=== PATIENT | female | born 1940 | race Caucasian/White ===

== ENCOUNTER 2016-10-14 15:20 | Emergency (ER) | payer OTHER ==
[~2016-10-14] VITALS: Ht 165.1 cm; Wt 68.0 kg
[~2016-10-14 15:20] MED LIST: ADVAIR DISKU 11 UNIT INH; ALENDRONATE SOD70 M1 PO; ASPIRIN EC325 M2 PO; ATENOLOL50 M1 PO; BALANCED B COM1 EACH PO; CALCIUM600 M2 PO; CHROMIUM PICO200 MC2 PO; CINNAMON500 M1 PO; CORICIDIN HBP1 EACH PO; FENOFIBRATE134 M1 PO; FISH OIL CONC1000 M1 PO; FLUTICASON0.05 MG/Ac NASB; FOLIC ACID0.8 M2 PO; LECITHIN1200 M2 PO; LOSARTAN-HCTZ 50-12. PO; LOVASTATIN10 MG PO; LOVASTATIN40 M1 PO; MACROBID100 MG PO; MAGNESIUM OXID400 MG PO; MAGNESIUM250 M3 PO; MULTIPLE VITAM1 EAC2 PO; PREDNISONE10 MG PO; RANITIDINE HCL150 MG PO; SYSTANE 0.3-0.415 ML OPH; TRICOR 48MG48 MG PO; VITAMIN C1000 M1 PO; VITAMIN C500 M7 PO; VITAMIN D-32000 UNIT PO; [UNRECOGNIZED DRUG - OTHER] OP; [UNRECOGNIZED DRUG - OTHER] PO; [UNRECOGNIZED DRUG - REMARK] PO
--- NOTE | 2016-10-14 15:34 | ED AMS/SEIZURE/WEAK/DIZZY ---
History of Present Illness General Chief Complaint: General Adult Stated Complaint: BIBA FOR LOW BP Source: patient, family, old records, EMS Exam Limitations: no limitations Allergies Coded Allergies: moxifloxacin (Intermediate, FELT LIKE I WAS HAVING A STROKE 10/14/15) azithromycin (Mild, NAUSEA 10/14/15) omeprazole (Mild, COTTON MOUTH. SORE THROAT 10/14/15) Sulfa (Sulfonamide Antibiotics) (UNKNOWN 10/14/15) aspirin (From AGGRENOX) (DIZZINESS 10/14/15) dipyridamole (From AGGRENOX) (DIZZINESS 10/14/15) cephalexin (Mild, RINGING EARS 10/14/15) erythromycin base (Mild, GI DISTRESS 10/14/15) sulfamethoxazole (From BACTRIM) (Mild, GI DISTRESS 10/14/15) trimethoprim (From BACTRIM) (Mild, GI DISTRESS 10/14/15) clopidogrel (From PLAVIX) (DIZZINESS 10/14/15) Reconcile Medications Acetaminophen/Chlorpheniramine (Coricidin Hbp Cold & Flu Tab) 325 MG-2 MG TABLET 2 TAB PO DAILY PRN COLD (Reported) Amlodipine Besylate 10 MG TABLET 1 TAB PO DAILY HEART (Reported) Ascorbic Acid (Vitamin C) 500 MG CAPSULE.ER 1 CAP PO DAILY SUPPLEMENT ( Reported) Aspirin (Ecotrin*) 325 MG TABLET.DR 1 TAB PO DAILY HEART HEALTH (Reported) Atenolol 50 MG TABLET 1 TAB PO DAILY HEART (Reported) Calcium Carbonate (Calcium) 600 MG (1,500 MG) TABLET 1 TAB PO DAILY SUPPLEMENT (Reported) Chlorpheniramine Maleate (Allergy) 4 MG TABLET 1 TAB PO DAILY PRN ALLERGIES ( Reported) Cholecalciferol (Vitamin D3) (Vitamin D-3) 2,000 UNIT TABLET 1 TAB PO DAILY SUPPLEMENT (Reported) Chromium Picolinate 200 MCG TABLET 1 CAP PO DAILY SUPPLEMENT (Reported) Cinnamon Bark (Cinnamon) 500 MG CAPSULE 2 CAP PO BID SUPPLEMENT (Reported) Eyelid Cleanser Combination #5 (Cleansing Eyelid Wipes) 1 EACH MED..PAD 1 STEFFANY OP BID EYE (Reported) Fenofibrate,Micronized (Fenofibrate) 134 MG CAPSULE 1 CAP PO DAILY CHOLESTEROL (Reported) Folic Acid 0.8 MG TABLET 1 TAB PO DAILY SUPPLEMENT (Reported) Hydralazine HCl 25 MG TABLET 1 TAB PO BID HEART (Reported) Lecithin, Soy (Lecithin) 1,200 MG CAPSULE 2 CAP PO TIDAC SUPPLEMENT (Reported ) Losartan/Hydrochlorothiazide (Losartan-Hctz 50-12.5 MG Tab) 50 MG-12.5 MG TABLET 1 TAB PO BID HEART (Reported) Lovastatin 40 MG TABLET 1 TAB PO DAILY CHOLESTEROL (Reported) with food Magnesium 250 MG TABLET 1 TAB PO DAILY SUPPLEMENT (Reported) Multivitamin (Multiple Vitamins) 1 EACH TABLET 1 TAB PO DAILY SUPPLEMENT ( Reported) [place]-3 Fatty Acids (Fish Oil Concentrate) 1,000 MG CAPSULE 2 CAP PO BID SUPPLEMENT (Reported) Propylene Glycol/Peg 400 (Systane 0.3-0.4% Eye Drops) 0.3 %-0.4 % DROPS 1 GTT OPH BID EYE (Reported) Ranitidine (Ranitidine HCl) 150 MG TABLET 1 TAB PO DAILY GI (Reported) Vitamin B Complex & Vit C No.3 (Balanced B Complex-Vit C) 15-10-300 TABLET.ER 1 TAB PO DAILY SUPPLEMENT (Reported) Triage Note: CALLED TO DR OFFICE DUE TO HYPOTENSION AFTER A FEMERAL ARTERY PROCEDURE, TODAY WAS A SCHEDULED APPT SIXTO NOVOA GOT SYSTOLIC 70'S WITH DIZZINESS, PER EMS BP WAS 130/70 AND CONTINUED THAT THROUGHOUT, DENIES ANY DIZZINESS AT THIS TIME Triage Nurses Notes Reviewed? yes Onset: Abrupt Duration: hour(s):, constant Timing: single episode today Injury Environment: home Severity: moderate, severe No Modifying Factors: none HPI: 76-year-old female comes into emergency room for further evaluation of a near syncopal episode that occurred prior to arrival. Patient reports that this morning she had a formal stent placed in her left femoral artery due to some stenosis that is going on to her kidney. Patient reports that she had no complications during the procedure that she is aware of and was in postop for about an hour and then discharged. Patient reports that she had an appointment with her primary care doctor Layo Awan MD. She went to the office. She was there to get a blood pressure check because her blood pressure has been running high at home and they thought it was related to the stenosis to the kidney. Patient reports that while she was in the office she felt lightheaded and dizzy and felt like she was going to pass out. Her blood pressure was reportedly 70/30 according to EMS. By the time EMS arrived she was asymptomatic and her blood pressure was normal. She currently denies any dizziness or lightheadedness. She denies any associated chest pain or shortness of breath or complete loss of consciousness with the event that occurred. Denies any abdominal pain. Denies any pain over the left groin. Patient is completely asymptomatic at the moment has no complaints at all. (JAME BAY) Vital Signs & Intake/Output Vital Signs & Intake/Output Vital Signs Date Time Temp Pulse Resp B/P Pulse O2 O2 Flow FiO2 Ox Delivery Rate 10/14 1840 78 14 137/62 97 10/14 1812 76 18 137/62 98 Room Air 10/14 1615 75 14 155/67 100 Room Air 10/14 1524 96.5 73 18 172/81 99 Room Air Past History Travel History Traveled to [place] past 21 day No Medical History Any Pertinent Medical History? 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 No (JAME BAY) Review of Systems Review of Systems Constitutional: Reports: see HPI. EENTM: Reports: no symptoms. Respiratory: Reports: no symptoms. Cardiovascular: Reports: no symptoms. GI: Reports: no symptoms. Genitourinary: Reports: no symptoms. Musculoskeletal: Reports: no symptoms. Skin: Reports: no symptoms. Neurological/Psychological: Reports: no symptoms. Hematologic/Endocrine: Reports: no symptoms. Immunologic/Allergic: Reports: no symptoms. All Other Systems: Reviewed and Negative (JAME BAY) Physical Exam Physical Exam General Appearance: well developed/nourished, no apparent distress, alert Head: atraumatic, normal appearance Eyes: Bilateral: normal appearance. Ears, Nose, Throat: normal pharynx, normal ENT inspection Neck: normal inspection Respiratory: normal breath sounds, no respiratory distress Cardiovascular: regular rate/rhythm Back: normal inspection Extremities: normal range of motion Neurologic/Psych: awake, alert, oriented x 3, normal gait, normal mood/affect Skin: intact, normal color Core Measures ACS in differential dx? No CVA/TIA Diagnosis: No Severe Sepsis Present: No Septic Shock Present: No (GINA ONEILL,JAME) Progress Differential Diagnosis: arrythmia, alcohol intoxication, benign positional vertigo, CVA/stroke, dehydration, encephalitis, GI bleed, hypoglycemia, hypoxia, labrynthitis, postural hypotension, presyncope, post-traumatic vertigo, seizure disorder, subarachnoid Hem., UTI/pyelo, vertebrobasilar insuff, retroperitoneal bleed Diagnostic Imaging: Viewed by Me: CT Scan. Discussed w/RAD: CT Scan. Radiology Impression: MPRESSION: 1. No acute intra-abdominal or intrapelvic abnormalities. Notably, no evidence of contrast extravasation or hematomas in the abdomen and pelvis. Hazy fat stranding in the left inguinal region and left labia majora appears unchanged from prior, possibly due to a small amount of subcutaneous bleeding. No discrete collections are present. 2. Left common and external iliac stents and left renal stent, unchanged. No appreciable vascular occlusion, though the multiple stenoses are present throughout the branches of the abdominal aorta. Small infrarenal abdominal aortic aneurysm is unchanged. 3. No significant change in the 1 cm cystic focus in the pancreatic head. Follow-up is recommended per the previous recommendation on the study from 10/16/2015., IMPRESSION: Stranding in the left inguinal region extending into the mons pubis. This is consistent with some hemorrhage. No large retroperitoneal hematoma. No large intra- or extraperitoneal collection. No major asymmetry in the visualized pelvic girdle muscles. Left iliac stent. Postoperative changes. Previous studies have demonstrated an abnormality of the pancreas. This should be managed on the basis of the previous reports. Initial ED EKG: normal intervals, normal p-waves, normal QRS complex, normal sinus rhythm, rate (67) Comments: 10/14/2016 4:18:22 PM The vascular DrYrn spoke with the surgical PA spoke with me and he wants a noncontrast CT abdomen and pelvis to make sure there is no signs of retroperitoneal bleeding. 10/14/2016 5:39:22 PM I spoke with the vascular surgeon Dr. nolen and due to the CT scan findings on the noncontrast study he now wants an IV contrast study. He says and IV contrast that he is appropriate and we do not need to get an angiogram. 10/14/2016 9:38:43 PM Patient clinically looks well. Nontoxic-appearing. In no apparent distress. Resting comfortably in room. Patient continues to remain asymptomatic. I spoke with the vascular doctor again in regards to the CT scan with the IV contrast. Patient will be discharged home. Patient has been observed here for a few hours in the emergency room and has had continuous normal blood pressures. She is completely asymptomatic. She has no signs of hemodynamic instability. H&H is essentially unchanged. Patient will follow up with her primary care doctor and vascular doctor as already scheduled. Return if any other concerns. Patient needs to discuss her blood pressure medications with her primary care doctor. (GINA ONEILL,JAME) Plan of Care: Orders Procedure Date/time Status TROPONIN LEVEL 10/14 1533 Complete COMPREHENSIVE METABOLIC PANEL 10/14 1533 Complete CBC WITHOUT DIFFERENTIAL 10/14 1533 Complete EKG 10/14 1533 Active Laboratory Tests 10/14/16 1610: Anion Gap 8, Estimated GFR > 60, BUN/Creatinine Ratio 28.6 H, Glucose 139 H, Calcium 10.0, Total Bilirubin 0.4, AST 23, ALT 31, Alkaline Phosphatase 37, Troponin I < 0.01, Total Protein 6.6, Albumin 4.2, Globulin 2.4, Albumin/ Globulin Ratio 1.8, CBC w Diff NO MAN DIFF REQ, RBC 3.99 L, MCV 89.1, MCH 30.1, RDW 13.9, MPV 7.0 L, Gran % 76.0 H, Lymphocytes % 16.0 L, Monocytes % 6.2, Eosinophils % 1.6, Basophils % 0.2, Absolute Granulocytes 9.5 H, Absolute Lymphocytes 2.0, Absolute Monocytes 0.8 H, Absolute Eosinophils 0.2, Absolute Basophils 0, PUBS MCHC 33.8 Departure Departure Disposition: HOME OR SELF CARE Condition: Stable Clinical Impression Primary Impression: Near syncope Referrals: JAYASHREE STOUT,LAYO (PCP/Family) Additional Instructions: Follow-up with your primary care doctor in regards to blood pressure medication adjustment. Return to the emergency room immediately if any other concerns worsening symptoms. Do not take your nighttime blood pressure medication tonight. Please go over all results of today's visit with your primary care doctor. Contact your primary care doctor to let them know you were here in the emergency room. There may be nonspecific findings which may not be related to your visit today here in the emergency room but may require further evaluation and chronic monitoring by your primary care doctor. If you had a laceration today the chance of foreign body always remains. You should follow-up with your primary care doctor for recheck in 3-5 days for a wound check. If you had an x-ray done there is a chance that a fracture could have been missed on initial read and you should follow-up with your primary care doctor for repeat x-rays if symptoms persist. If your blood pressure was elevated here in the emergency room please have rechecked by her primary care doctor within the next 48 hours by your primary care doctor. If you were prescribed a narcotic here in the emergency room or any type of controlled substances you're not allowed to drive while taking this medication or operate any type of heavy machinery. Narcotics can make you feel lightheaded dizziness nausea and can cause constipation. You may need to scrap picker a stool softener. Thank you for choosing [facility] emergency room. Please return to the emergency room immediately if you have any other concerns worsening of symptoms. Departure Forms: Customer Survey General Discharge Information (JAME BAY) PA/FRETTED STRING INSTRUMENT REPAIRER Co-Sign Statement Statement: ED Attending supervision documentation- [X] I saw and evaluated the patient. I have also reviewed all the pertinent lab results and diagnostic results. I agree with the findings and the plan of care as documented in the PA's/FRETTED STRING INSTRUMENT REPAIRER's documentation. [] I have reviewed the ED Record and agree with the PA's/FRETTED STRING INSTRUMENT REPAIRER's documentation. [] Additions or exceptions (if any) to the PAs/FRETTED STRING INSTRUMENT REPAIRER's note and plan are summarized below: [] (ANUSHA STOUT,WILNER Srivastava)
[2016-10-14] MEDS ORDERED: LOSARTAN-HCTZ1 EAC1 PO (15:37)
[2016-10-14] MEDS ORDERED: HYDRALAZINE HCL25 M1 PO (15:38)
[2016-10-14] MEDS ORDERED: AMLODIPINE BESY10 M1 PO (15:38)
[2016-10-14 16:20] LABS: ABSOLUTE BASOPHIL COUNT 0 /CUMM (0.0-0.2); ABSOLUTE EOSINOPHIL COUNT 0.2 /CUMM (0.0-0.7); ABSOLUTE GRANULOCYTE CT 9.5 /CUMM (1.4-6.5); ABSOLUTE MONOCYTE COUNT 0.8 /CUMM (0.10-0.60); BASOPHIL % 0.2 % (0.0-2.0); EOSINOPHIL % 1.6 % (0-5); HEMATOCRIT 35.5 % (37-47); MEAN CORPUSCULAR HGB 30.1 PG (27.0-31.0); MEAN CORPUSCULAR HGB CONC 33.8 G/DL (33.0-37.0); MEAN CORPUSCULAR VOLUME 89.1 FL (81.0-99.0); PLATELET COUNT 420 /CUMM (130-400); RBC DISTRIBUTION WIDTH 13.9 % (11.5-14.5); RED BLOOD CELL CT 3.99 /CUMM (4.20-5.40); WHITE BLOOD CELL COUNT 12.5 /CUMM (4.8-10.8)
--- NOTE | 2016-10-14 16:37 | CT SCAN REPORT ---
EXAMINATION: CT ABDOMEN AND PELVIS WITHOUT CONTRAST CLINICAL INFORMATION: Post femoral artery stenting today. Evaluate for hemorrhage. COMPARISON: Portions of a previous CT 10/16/15 TECHNIQUE: Multidetector volumetric imaging was performed from the superior aspect of the liver through the pubic symphysis. Sagittal and coronal reformatted images were obtained on the technologist's workstation. DLP: 258 mGy-cm FINDINGS: Digital oxygen equipment aide: There is a scoliosis. The bowel gas pattern is nonobstructed. Left iliac stent. Surgical clips right inguinal region. Abdominal wall tacks in the lower abdominal wall region. LUNG BASES: I suspect some underlying chronic lung disease. No suspicious abnormality. Minimal sliding-type hiatal hernia. LIVER, GALLBLADDER, AND BILIARY TREE: No suspicious focal liver lesion. No definite calcified gallstone. No significant biliary dilation. PANCREAS: Previous enhanced study suggested a 1.3 cm lobulated hypodense lesion in the pancreatic head. This nonenhanced study does not allow direct comparison. This should be managed on the basis of the previous recommendations SPLEEN: No suspicious abnormality ADRENAL GLANDS: No suspicious abnormality KIDNEYS AND URETERS: The kidneys demonstrate faint nephrograms. This is likely related to previous contrast administration. There is bilateral excretion. No suspicious mass BLADDER: No suspicious abnormality there is contrast excreted into the bladder. GASTROINTESTINAL TRACT: No localized colonic wall thickening. No significant small bowel dilation. No definite abnormal appendix. No definite abnormality the stomach. As described there is a tiny sliding-type hiatal hernia. ABDOMINAL WALL: No significant hernia. There is moderate stranding in the left inguinal soft tissues extending into the labia/mons on the left. This could be related to intervention via the left groin. There is stranding in the region of the common femoral vessels. There is no large retroperitoneal or extraperitoneal hematoma. There is no convincing major asymmetry in the muscles around the left hip. No significant mass effect. The iliopsoas muscles are symmetric. LYMPH NODES: There are no enlarged abdominal or pelvic lymph nodes. There is no free intraperitoneal fluid. VASCULAR: There is focal dilation of the distal abdominal aorta. There is extensive atherosclerosis. There has been left iliac stent placement. There are surgical clips in the region of the right external iliac artery. There are surgical clips in the right inguinal soft tissues. There is a left renal artery stent. PELVIC VISCERA: The uterus is surgically absent. No large adnexal mass or collection. There are tacks in the adnexal region perhaps related to previous suspension or surgery. OSSEOUS STRUCTURES: Minor concavity involving the superior endplate of L2. There is degenerative change in the lower spine. IMPRESSION: Stranding in the left inguinal region extending into the mons pubis. This is consistent with some hemorrhage. No large retroperitoneal hematoma. No large intra- or extraperitoneal collection. No major asymmetry in the visualized pelvic girdle muscles. Left iliac stent. Postoperative changes. Previous studies have demonstrated an abnormality of the pancreas. This should be managed on the basis of the previous reports.
--- NOTE | 2016-10-14 18:21 | CT SCAN REPORT ---
EXAMINATION: CT ABDOMEN AND PELVIS WITH CONTRAST CLINICAL INFORMATION: Abdominal pain. Had stent in left groin placed earlier today. COMPARISON: CT from the same date at 3:[address] runoff dated 10/16/2015 TECHNIQUE: Multidetector volumetric imaging was performed of the abdomen and pelvis before and after the IV administration of 95 mL of Optiray 320 intravenous contrast. Sagittal and coronal reformatted images were obtained on the technologist's workstation. DLP: 283.7 mGy-cm FINDINGS: LUNG BASES: Minimal dependent atelectasis. There is previously noted, there may be a component of underlying chronic lung disease. Tiny sliding-type hiatal hernia. LIVER, GALLBLADDER, AND BILIARY TREE: The liver is normal in size, shape, and attenuation. No focal hepatic lesion or biliary ductal dilatation is present. The gallbladder is unremarkable with no evidence of radiopaque gallstones, gallbladder wall thickening, or obvious pericholecystic inflammatory changes. PANCREAS: The previously seen cystic lesion in the pancreatic head is not appreciably changed from the prior study, measuring roughly 1 cm in greatest diameter. SPLEEN: Unremarkable. ADRENAL GLANDS: Unremarkable. KIDNEYS AND URETERS: The kidneys are normal in size, shape, and attenuation. No hydronephrosis, hydroureter, or calculi seen. No perinephric stranding. Small subcentimeter foci of high attenuation both kidneys are too small to characterize, most likely cysts based on prevalence. BLADDER: Contrast material is present throughout the partially distended bladder. No wall thickening or surrounding inflammatory changes. No mural lesions. GASTROINTESTINAL TRACT: As mentioned above, there is a tiny sliding-type hiatal hernia. Stomach, small bowel, and colon are normal in caliber. Mild colonic diverticulosis. No acute diverticulitis. Appendix is normal. No intraperitoneal free air or free fluid. ABDOMINAL WALL: No hernia. As noted on the prior CT, there is fat stranding within the left inguinal soft tissues extending into the left labial region. No fluid collections are identified. As previously seen, the stranding also extends around the left common femoral vessels in the inguinal region. Appearance is not significantly changed from the prior study. LYMPH NODES: Normal. VASCULAR: Again seen is calcific atherosclerosis throughout the abdominal aorta and its branch vessels. As previously noted, there is aneurysmal dilatation of the infrarenal abdominal aorta, measuring up to 2.7 cm AP. Stents are again noted in the left renal artery and left common and external iliac arteries. Blood flow is evident through these arteries without evidence of occlusion. Atherosclerotic plaques likely produce stenoses at the SMA, celiac axis, right renal artery, right common iliac artery and the distal branches of the external iliac arteries bilaterally, though evaluation is somewhat limited on this study. Significant atherosclerotic disease is evident within the inflow arteries to the lower extremities. There is no evidence of aneurysmal dilatation and there are pseudoaneurysm in the inguinal regions. Multiple surgical clips are present in the right inguinal region. PELVIC VISCERA: Uterus is surgically absent. No adnexal lesions are identified. OSSEOUS STRUCTURES: There is multilevel degenerative disc disease in the lumbar spine with right convexity centered at L3-L4. Marked facet arthropathy is present in the lower lumbar spine. Mild superior endplate compression deformity of L2 is likely chronic. IMPRESSION: 1. No acute intra-abdominal or intrapelvic abnormalities. Notably, no evidence of contrast extravasation or hematomas in the abdomen and pelvis. Hazy fat stranding in the left inguinal region and left labia majora appears unchanged from prior, possibly due to a small amount of subcutaneous bleeding. No discrete collections are present. 2. Left common and external iliac stents and left renal stent, unchanged. No appreciable vascular occlusion, though the multiple stenoses are present throughout the branches of the abdominal aorta. Small infrarenal abdominal aortic aneurysm is unchanged. 3. No significant change in the 1 cm cystic focus in the pancreatic head. Follow-up is recommended per the previous recommendation on the study from 10/16/2015.
[2016-10-14 18:40] VITALS: BP 137/62
[2016-12-09] MEDS ORDERED: PLAVIX75 M1 PO (08:20)
== END 2016-10-14 18:45 ==
LOC: ERH 15:20
PROVIDERS: Physician Assistant Medical
DX: R55 Syncope and collapse (principal); R42 Dizziness and giddiness; Z86.79 Personal history of other diseases of the circulatory system
CPT/HCPCS: 74176; 74177; 93005; 93010

== ENCOUNTER 2016-12-12 01:38 | Inpatient (IN) | payer OTHER ==
[~2016-12-12] VITALS: Ht 154.9 cm; Wt 59.0 kg
[~2016-12-12 01:38] MED LIST changes: +AMLODIPINE BESY10 M1 PO; +HYDRALAZINE HCL25 M1 PO; +LOSARTAN-HCTZ1 EAC1 PO; +PLAVIX75 M1 PO
--- NOTE | 2016-12-12 09:49 | Operative Report ---
Operative/Inv Procedure Report Surgery Date: 12/12/16 Name of Procedure: #1 left common femoral artery endarterectomy with bovine patch angioplasty #2 left iliac artery endarterectomy #3 left inguinal hernia repair Pre-Operative Diagnosis: #1 left common femoral artery occlusion#2 disabling claudication Post-Operative Diagnosis: Same Estimated Blood Loss: scant Surgeon/Circus Rider: ROSA MARIA STOUT,SHAHRZAD Narvaez/Dr Hector garcia Anesthesia: general endotracheal tube Operative Indication: Pain left leg Operative/Procedure Note Note: The patient was correctly identified and brought to the operating room. Both groins were sterilely prepped and draped in the usual fashion. An incision was made over the common femoral artery. A left inguinal hernia was noted and this was repaired with 2-0 Dexon sutures. The endarterectomy was done with an adequate endpoint in the SFA and profunda femoris. Endarterectomy of the external iliac was done as well. Inserted the gastric was ligated. The endarterectomy was followed by the patch angioplasty with 6-0 Prolene. Blood was reconstituted and there was strong pulses in the SFA profunda femoris and common femoral. The patient had excellent signals in the faint dorsalis pedis pulse. The procedure was terminated and the wound was closed in 2 layers. Sterile dressings were applied. The patient was taken to the recovery room area in satisfactory condition. The left external common femoral profunda femoris and superficial femoral arteries were dissected. The patient was heparinized. Proximal and distal control was obtained. Findings: Complete occlusion of common femoral artery. Discharge Disposition: Same Day Admissions
--- NOTE | 2016-12-12 10:10 | Admission Core Measures ---
Admission Lab Results I reviewed the following labs: Laboratory Tests 12/12 0700 Chemistry Sodium (137 - 145 mmol/L) 139 Potassium (3.5 - 5.1 mmol/L) 4.2 Chloride (98 - 107 mmol/L) 103 Carbon Dioxide (22 - 30 mmol/L) 25 Anion Gap (5 - 16) 11 BUN (7 - 17 mg/dL) 22 H Creatinine (0.5 - 1.0 mg/dL) 0.8 Estimated GFR (>60 ml/min) > 60 BUN/Creatinine Ratio (7 - 25 %) 27.5 H Glucose (65 - 99 mg/dL) 96 Calcium (8.4 - 10.2 mg/dL) 9.8 Acute Coronary Syndrome Inclusion Criteria ACS Diagnosis No Inpatient Core Measures LDL Reminder: If No, please order W/I first 24hr of stay Congestive Heart Failure Inclusion Criteria CHF Diagnosis No Cerebrovascular accident Inclusion Criteria CVA/TIA Diagnosis No Inpatient Core Measures Bedside Swallow Eval Reminder: If BSE failed, place ST order Antithrombotic Reminder: Order Antithrombotic Medication by end of day 2 Antithrombotic Reminder: Document Reason Antithrombotic Not ordered by end of day 2 AFIB/Flutter Reminder: If Present, add to problem list AFIB/Flutter Reminder: Order Anticoag Medication for pts with AFIB/Flutter Atherosclerosis Reminder: If Present, add to problem list LDL Reminder: If No, please order W/I first 24hr of stay PT Order Reminder: If No, please order Venous thromboembolism Inpatient Core Measures VTE Risk Factors: Acute medical illness, Age > 40, Surgery No [facility] VTE prophylaxis d/t No contraindications No VTE Pharm Prophylaxis d/t No contraindications Inclusion Criteria - Per Current guidelines, there needs to be overlap - treatment for the first 5 days of Warfarin therapy. - Parenteral Anticoagulation (IV or SC) needs to be - given along with Warfarin therapy. 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 MEDS Home Med List Amlodipine Besylate 10 MG TABLET 0.5 TAB PO DAILY HEART (Reported) Ascorbic Acid (Vitamin C) 500 MG CAPSULE.ER 1 CAP PO DAILY SUPPLEMENT ( Reported) Atenolol 50 MG TABLET 1 TAB PO DAILY HEART (Reported) Calcium Carbonate (Calcium) 600 MG (1,500 MG) TABLET 1 TAB PO DAILY SUPPLEMENT (Reported) Cholecalciferol (Vitamin D3) (Vitamin D-3) 2,000 UNIT TABLET 1 TAB PO DAILY SUPPLEMENT (Reported) Clopidogrel Bisulfate (Plavix) 75 MG TABLET 1 TAB PO 2X/WEEK PVD (Reported) Fenofibrate,Micronized (Fenofibrate) 134 MG CAPSULE 1 CAP PO DAILY CHOLESTEROL (Reported) Losartan/Hydrochlorothiazide (Losartan-Hctz 50-12.5 MG Tab) 50 MG-12.5 MG TABLET 1 TAB PO BID HEART (Reported) Lovastatin 40 MG TABLET 1 TAB PO DAILY CHOLESTEROL (Reported) Magnesium 250 MG TABLET 1 TAB PO DAILY SUPPLEMENT (Reported) Ranitidine (Ranitidine HCl) 150 MG TABLET 1 TAB PO DAILY GI (Reported)
[2016-12-12 14:42] VITALS: BP 134/60
--- NOTE | 2016-12-12 15:06 | PN- Vascular Surgery ---
Subjective Subjective: POST-OP NOTE: Eager to get out of bed to urinate. She has been laying flat, but feels the urge to void, but she is agreeable to wait for another 45 minutes vs using bedpan or catheter. Tolerating clears. No nausea. Denies dizziness. No shortness of breath. No chest pains. Objective Vital Signs and I&Os Vital Signs Date Time Temp Pulse Resp B/P B/P Pulse O2 O2 Flow FiO2 Mean Ox Delivery Rate 12/12 1442 97.5 73 20 134/60 96 Room Air Intake & Output 12/12 1600 12/12 0800 12/12 0000 12/11 1600 12/11 0800 12/11 0000 Intake Total Output Total Balance Patient 130 lb Weight Weight Reported by Patient Measurement Method Physical Exam: General - alert & oriented x 3. comfortable. no acute distress. Lungs - clear bilaterally. no w/r/r. Cardiac - s1s2 Abdomen - soft. nontender. Extremities - left groin dressing c/d/i. no hematoma or drains. left foot cool. nvi. dopplerable signals appreciated, stronger PT and weaker DP. 5/5 DF/PF. calves soft and nontender b/l. Current Medications: Current Medications Sig/Clara Start time Last Medication Dose Route Stop Time Status Admin Acetaminophen 650 MG Q6P PRN 12/12 1145 AC PO Amlodipine Besylate 5 MG DAILY 12/13 1000 AC PO Ascorbic Acid 500 MG DAILY 12/13 1000 AC PO Atenolol 50 MG DAILY 12/13 1000 AC PO Calcium 600 MG DAILY 12/13 1000 AC PO Cefazolin Sodium 2 GM ONCE ONE 12/12 1600 CAN IV 12/12 1601 Cefazolin Sodium 2 GM ONCE ONE 12/12 1600 AC N/A 1 UNIT IV 12/12 1629 Cholecalciferol 2,000 IU DAILY 12/13 1000 AC PO Clopidogrel Bisulfate 75 MG MoFr@1000 12/12 1145 AC PO Dextrose/Sodium 1,000 ML .[id number] 12/12 1145 AC Chloride IV Docusate Sodium 100 MG BID 12/12 1022 AC PO Famotidine 20 MG DAILY 12/12 1030 AC PO Fenofibrate 145 MG DAILY 12/12 1030 AC PO Hydrochlorothiazide 12.5 MG DAILY 12/13 1000 AC PO Losartan Potassium 50 MG DAILY 12/13 1000 AC PO Magnesium Oxide 400 MG DAILY 12/13 1000 AC PO Morphine Sulfate 2 MG Q4P PRN 12/12 1145 AC IV Ondansetron HCl 4 MG Q6P PRN 12/12 1145 AC IV Oxycodone/ 1 TAB Q4P PRN 12/12 1145 AC Acetaminophen PO Oxycodone/ 2 TAB Q4P PRN 12/12 1145 AC Acetaminophen PO Assessment/Plan Assessment/Plan This 76 year old female with hx htn and pad, is POD#0 s/p #1 left common femoral artery endarterectomy with bovine patch angioplasty #2 left iliac artery endarterectomy #3 left inguinal hernia repair, for #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 Yes If Yes, Was This Ordered Today? Yes Antibiotics Is Patient on Antibiotics? Yes If Yes: prophylaxis
--- NOTE | 2016-12-12 16:30 | NUR ---
1545 PATIENT UP TO BS FROM LYING FLAT SINCE 929 PER MD ORDER.
[2016-12-12 22:50] VITALS: BP 138/60
[2016-12-13 03:06] VITALS: BP 130/56
--- NOTE | 2016-12-13 06:25 | NUR ---
NURSING NOTE: PATIENTS BP 170/70 HR 75 AT THIS TIME, PAIN MEDICATION GIVEN FOR PAIN SCALE 6/10. MAI MALIN MADE AWARE OF ABOVE, NO FURTHER ORDERS GIVEN. WILL CONT TO MONITOR.
[2016-12-13 06:47] VITALS: BP 130/70
[2016-12-13 08:49] LABS: ABSOLUTE BASOPHIL COUNT 0 /CUMM (0.0-0.2); ABSOLUTE EOSINOPHIL COUNT 0.2 /CUMM (0.0-0.7); ABSOLUTE GRANULOCYTE CT 6.3 /CUMM (1.4-6.5); ABSOLUTE LYMPH COUNT 2.7 /CUMM (1.2-3.4); ABSOLUTE MONOCYTE COUNT 0.8 /CUMM (0.10-0.60); BASOPHIL % 0.3 % (0.0-2.0); HEMATOCRIT 32.4 % (37-47); MEAN CORPUSCULAR HGB CONC 33.6 G/DL (33.0-37.0); MEAN CORPUSCULAR VOLUME 89.2 FL (81.0-99.0); MEAN PLATELET VOLUME 7.3 FL (7.4-10.4); PLATELET COUNT 349 /CUMM (130-400); RBC DISTRIBUTION WIDTH 13.6 % (11.5-14.5); RED BLOOD CELL CT 3.63 /CUMM (4.20-5.40); WHITE BLOOD CELL COUNT 10.1 /CUMM (4.8-10.8)
[2016-12-13 08:52] VITALS: BP 130/70
--- NOTE | 2016-12-13 10:05 | PN- Vascular Surgery ---
Subjective Subjective: no complaints, pain controlled, up and ambulatory without difficluty. feels well , no foot pain or numbness. Objective Vital Signs and I&Os Vital Signs Date Time Temp Pulse Resp B/P B/P Pulse O2 O2 Flow FiO2 Mean Ox Delivery Rate 12/13 0852 75 130/70 12/13 0852 75 130/70 12/13 0852 75 130/70 12/13 0647 98.2 75 20 130/70 97 Room Air 12/13 0306 98.4 74 20 130/56 94 Room Air 12/12 2250 97.6 80 20 138/60 98 Room Air 12/12 1442 97.5 73 20 134/60 96 Room Air Intake & Output 12/13 1600 12/13 0800 12/13 0000 12/12 1600 12/12 0000 Intake Total 1090 400 270 Output Total 700 300 500 Balance 390 100 -230 Intake, IV 610 300 150 Intake, Oral 480 100 120 Number 0 Bowel Movements Output, Urine 700 300 500 Patient 130 lb Weight Weight Reported by Patient Measurement Method Physical Exam: General - alert & oriented x 3. comfortable. no acute distress. Extremities - left groin dressing c/d/i, minimal bloody staining. no hematoma. left foot cool. nvi, wiggles toes. delayed cap refill. dopplerable signals appreciated, stronger PT and weaker DP. 5/5 DF/PF. calves soft and nontender b/ l. (no apparent change from yesterday) Results Last 48 Hours of Labs: Laboratory Tests 12/13 12/12 0817 0700 Chemistry Sodium (137 - 145 mmol/L) 135 L 139 Potassium (3.5 - 5.1 mmol/L) 4.6 4.2 Chloride (98 - 107 mmol/L) 100 103 Carbon Dioxide (22 - 30 mmol/L) 25 25 Anion Gap (5 - 16) 10 11 BUN (7 - 17 mg/dL) 11 22 H Creatinine (0.5 - 1.0 mg/dL) 0.6 0.8 Estimated GFR (>60 ml/min) > 60 > 60 BUN/Creatinine Ratio (7 - 25 %) 18.3 27.5 H Glucose (65 - 99 mg/dL) 96 Calcium (8.4 - 10.2 mg/dL) 9.8 Hematology CBC w Diff NO MAN DIFF REQ WBC (4.8 - 10.8 /CUMM) 10.1 RBC (4.20 - 5.40 /CUMM) 3.63 L Hgb (12.0 - 16.0 G/DL) 10.9 L Hct (37 - 47 %) 32.4 L MCV (81.0 - 99.0 FL) 89.2 MCH (27.0 - 31.0 PG) 30.0 RDW (11.5 - 14.5 %) 13.6 Plt Count (130 - 400 /CUMM) 349 MPV (7.4 - 10.4 FL) 7.3 L Gran % (42.2 - 75.2 %) 63.0 Lymphocytes % (20.5 - 51.1 %) 26.7 Monocytes % (1.7 - 9.3 %) 8.0 Eosinophils % (0 - 5 %) 2.0 Basophils % (0.0 - 2.0 %) 0.3 Absolute Granulocytes (1.4 - 6.5 /CUMM) 6.3 Absolute Lymphocytes (1.2 - 3.4 /CUMM) 2.7 Absolute Monocytes (0.10 - 0.60 /CUMM) 0.8 H Absolute Eosinophils (0.0 - 0.7 /CUMM) 0.2 Absolute Basophils (0.0 - 0.2 /CUMM) 0 PUBS MCHC (33.0 - 37.0 G/DL) 33.6 Assessment/Plan Assessment/Plan This 76 year old female with hx htn and pad, is POD#1 s/p #1 left common femoral artery endarterectomy with bovine patch angioplasty #2 left iliac artery endarterectomy #3 left inguinal hernia repair, for #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 . Core Measures/Miscellaneous Venous Thromboembolism VTE Risk Factors: Age > 40, Surgery VTE Contraindications: No Contraindications VTE Diagnosis: No VTE Type: NONE VTE Confirmed by (Test): NONE Beta Hari Is Beta Hari a Home Med? Yes If Yes, Was This Ordered Today? Yes Antibiotics Is Patient on Antibiotics? Yes If Yes: prophylaxis
[2016-12-13] MEDS ORDERED: PERCOCET 5-3251 EACH PO (10:10)
[2016-12-13] MEDS ORDERED: PLAVIX75 M1 PO (10:13)
[2016-12-13] MEDS ORDERED: ASPIRIN EC81 M1 PO (10:13)
--- NOTE | 2016-12-13 10:18 | Patient Discharge Instructions ---
Discharge Instructions General Discharge Information You were seen/treated for: LEFT COMMON FEMORAL ARTERY OCCLUSION You had these procedures: #1 left common femoral artery endarterectomy with bovine patch angioplasty #2 left iliac artery endarterectomy #3 left inguinal hernia repair, for #1 left common femoral artery occlusion #2 disabling claudication and #3 left inguinal hernia Watch for these problems: increased swelling, bleeding , redness or pain at incision site. fever or flu like illness pain in the foot or dark discoloration of the foot Do not soak the wound: Yes Daily wet to dry dressings: No No bath, but you may shower: Yes Other wound care: daily dressing changes with michael or bandaide, apply betadine to the skin and let dry, then apply dressing. change dressing when wet Special Instructions: increase your plavix to every other day, one tablet. start taking a baby aspirin (81mg) every day. Diet Continue normal diet: Yes Activity Full Activity/No Limits: No Activity Self Limited: Yes Pounds, do NOT lift more than: 10 Activity Limited to: Weight bear as tolerated Acute Coronary Syndrome Inclusion Criteria At DC or during hospital stay patient has or had the following: ACS DIAGNOSIS No Discharge Core Measures Meds if any: Prescribed or Continued at Discharge Meds if any: NOT Prescribed or Continued at Discharge Congestive Heart Failure Inclusion Criteria At DC or during hospital stay patient has or had the following: CHF DIAGNOSIS No Discharge Core Measures Meds if any: Prescribed or Continued at Discharge Meds if any: NOT Prescribed or Continued at Discharge Cerebrovascular accident Inclusion Criteria At DC or during hospital stay patient has or had the following: CVA/TIA Diagnosis No Discharge Core Measures Meds if any: Prescribed or Continued at Discharge Meds if any: NOT Prescribed or Continued at Discharge Venous thromboembolism Inclusion Criteria VTE Diagnosis No VTE Type NONE VTE Confirmed by (Test) NONE Discharge Core Measures - Per Current guidelines, there needs to be overlap - treatment for the first 5 days of Warfarin therapy. - If discharged on Warfarin prior to 5 days of - overlap therapy, the patient will need to be - assessed for post discharge needs including - *Post discharge parental anticoagulation - *Warfarin and/or parental anticoagulation education - *Follow up date to check INR post discharge At least 5 days overlap therapy as Inpatient No Meds if any: Prescribed or Continued at Discharge Note: Overlap Therapy is Warfarin and Anticoagulant Meds if any: NOT Prescribed or Continued at Discharge
--- NOTE | 2016-12-13 10:21 | Surg Short-stay <48hrs Dis Sum ---
Visit Information Visit Dates Admission Date: 12/12/16 Discharge Date: 12/13/16 Surgical Short Stay DC Summary Admission Diagnosis: left common femoral artery occlusion Final Diagnosis: same Procedure(s): This 76 year old female with hx htn and pad, is POD#0 s/p #1 left common femoral artery endarterectomy with bovine patch angioplasty #2 left iliac artery endarterectomy #3 left inguinal hernia repair, for #1 left common femoral artery occlusion #2 disabling claudication and #3 left inguinal hernia Summary/Significant Findings: pt underwent the above procedure without complications. she recieved periopertive abx, pain meds, heparin sq, plavix. she had dopplerable DP (faint) and PT pulses L foot. pain is controlled and she is doing well post op day 1. she was seen and cleared by PT for home. Condition at Discharge: good Discharge Disposition: home or self care Discharge instructions provided to patient/family: Yes Post discharge follow-up plan: follow up with vascular surgeon in 7-10 days. increase your plavix to every other day, 75mg, and aspirin daily, 81mg. take pain meds as needed. (percocet OR tylenol)
== END 2016-12-13 12:30 | DRG 272 ==
LOC: SDA 01:38 → 2NB 01:38 → ENRESERV 10:12 → 2NB 11:10
PROVIDERS: Physician Assistant Surgical; ADMIT Surgery Vascular Surgery
PROC: 04CL0ZZ Extirpation of Matter from Left Femoral Artery, Open Approach (ICD-10-PCS; principal; 2016-12-12)
PROC: 04UL0KZ Supplement Left Femoral Artery with Nonautologous Tissue Substitute, Open Approach (ICD-10-PCS; principal; 2016-12-12)
PROC: 0YQ60ZZ Repair Left Inguinal Region, Open Approach (ICD-10-PCS; principal; 2016-12-12)
PROC: 04CJ0ZZ Extirpation of Matter from Left External Iliac Artery, Open Approach (ICD-10-PCS; principal; 2016-12-12)
PROC: 04UJ0KZ Supplement Left External Iliac Artery with Nonautologous Tissue Substitute, Open Approach (ICD-10-PCS; principal; 2016-12-12)
DX: I70.212 Atherosclerosis of native arteries of extremities with intermittent claudication, left leg (principal); J44.9 Chronic obstructive pulmonary disease, unspecified; E11.9 Type 2 diabetes mellitus without complications; I10 Essential (primary) hypertension; K40.90 Unilateral inguinal hernia, without obstruction or gangrene, not specified as recurrent; M19.90 Unspecified osteoarthritis, unspecified site; E78.00 Pure hypercholesterolemia, unspecified; Z87.891 Personal history of nicotine dependence
CPT/HCPCS: 2NBP; 36415; 82436; 88304; 97161-GP; J0131; J0690; J1644; J2405; J7042